=== PATIENT | male | born 1985 | race Two or more races ===

== ENCOUNTER 2017-02-10 21:23 | Emergency (ER) | payer SELFPAY ==
[~2017-02-10] VITALS: Ht 175.3 cm; Wt 86.2 kg
[2017-02-10 21:35] VITALS: BP 106/69
[2017-02-10] MEDS ORDERED: Cetacaine Spray 50ml Btl TOPIC ONE (22:00)
[2017-02-10 22:29] LABS: MEAN CORPUSCULAR HEMOGLOBIN 29.2 PG (27.0-31.0); MEAN CORPUSCULAR HGB CONC 33.1 G/DL (32.0-36.0); MEAN CORPUSCULAR VOLUME 88 FL (80-99); MEAN PLATELET VOLUME 4.6 FL (6.5-10.1); PLATELET COUNT 597 K/UL (150-450); RED BLOOD COUNT 4.99 M/UL (4.70-6.10); RED CELL DISTRIBUTION WIDTH 10.2 % (11.6-14.8); WHITE BLOOD COUNT 18.2 K/UL (4.8-10.8)
[2017-02-10] MEDS ORDERED: Hurricaine 20% Spray ORO ONE (22:30)
--- NOTE | 2017-02-10 22:44 | Emergency Room Report ---
History of Present Illness General Chief Complaint: Sore Throat Source: Patient Present Illness HPI 31-year-old male presents ED complaining of sore throat times one week. States he was seen by PMD and was prescribed antibiotics but states they're not helping. Temp in triage is 100.9. States pain is sharp, 9/10, nonradiating. Denies difficulty breathing or swallowing. Denies cough. Denies ear ache. Denies sick contacts or recent travel. No other aggravating relieving factors. Denies any other associated symptoms Allergies: Coded Allergies: No Known Allergies (Unverified , 02/10/17) Patient History Past Medical History: none Past Surgical History: none Pertinent Family History: none Social History: Denies: smoking, alcohol use, drug use Immunizations: UTD Reviewed Nursing Documentation: PMH: Agreed, PSxH: Agreed Nursing Documentation-PMH Past Medical History: No Stated History Review of Systems All Other Systems: negative except mentioned in HPI Physical Exam Vital Signs Date Time Temp Pulse Resp B/P (MAP) Pulse Ox O2 Delivery O2 Flow Rate FiO2 02/10/17 21:26 100.9 97 20 106/69 98 Sp02 EP Interpretation: reviewed, normal General Appearance: no apparent distress, alert, GCS 15, non-toxic Head: normocephalic Eyes: bilateral eye normal inspection, bilateral eye PERRL ENT: hearing grossly normal, normal voice, TMs + canals normal, pharyngeal erythema, other - COMPENSATION ADMINISTRATOR Neck: full range of motion, no meningismus, supple/symm/no masses Respiratory: chest non-tender, lungs clear, normal breath sounds, speaking full sentences Cardiovascular #1: regular rate, rhythm, no edema Gastrointestinal: normal inspection Rectal: deferred Genitourinary: no CVA tenderness Musculoskeletal: normal inspection Neurologic: alert, oriented x3, responsive, motor strength/tone normal, sensory intact, speech normal Psychiatric: normal inspection Skin: normal inspection Lymphatic: normal inspection Procedures Additional Procedure Procedure Narrative Peritonsillar abscess aspiration Patient placed in supine position with head of bed elevated. In sterile fashion area is anesthetized with viscous lidocaine applied topically with cotton swab. 18-gauge needle was carefully inserted into the peritonsillar abscess with negative pressure and approximately 15 mL of purulent material was expressed. Patient tolerated procedure without complication. Medical Decision Making Diagnostic Impression: Primary Impression: Peritonsillar abscess ER Course Hospital Course 31-year-old male presents to ED complaining of sore throat + fever Differential diagnoses include: URI, pharyngitis, otitis media Clinical course Patient placed on stretcher. After initial history, physical exam reveals a male in no acute distress. Bilateral TM unremarkable. There is pharyngeal erythema and evidence of a large peritonsillar abscess on the left with deviation of the uvula. No stridor. No shortness of breath. Labs drawn-leukocytosis noted, lactic acid okay, electrolytes okay Patient given IV clindamycin in ED Peritonsillar abscess drained in ED without complication. approximately 15 mL of purulent material was drained. Patient states he feels significantly better after drainage. Given Decadron in ED Diagnosis - peritonsillar abscess Stable and discharged home with prescriptions for Tylenol #3, clindamycin. Instructed to followup with ENT. return to ED if symptoms recur or worsen Labs Test 02/10/17 21:50 White Blood Count 18.2 K/UL (4.8-10.8) Red Blood Count 4.99 M/UL (4.70-6.10) Hemoglobin 14.6 G/DL (14.2-18.0) Hematocrit 44.0 % (42.0-52.0) Mean Corpuscular Volume 88 FL (80-99) Mean Corpuscular Hemoglobin 29.2 PG (27.0-31.0) Mean Corpuscular Hemoglobin Concent 33.1 G/DL (32.0-36.0) Red Cell Distribution Width 10.2 % (11.6-14.8) Platelet Count 597 K/UL (150-450) Mean Platelet Volume 4.6 FL (6.5-10.1) Neutrophils (%) (Auto) % (45.0-75.0) Lymphocytes (%) (Auto) % (20.0-45.0) Monocytes (%) (Auto) % (1.0-10.0) Eosinophils (%) (Auto) % (0.0-3.0) Basophils (%) (Auto) % (0.0-2.0) Differential Total Cells Counted 100 Neutrophils % (Manual) 83 % (45-75) Lymphocytes % (Manual) 9 % (20-45) Monocytes % (Manual) 7 % (1-10) Eosinophils % (Manual) 0 % (0-3) Basophils % (Manual) 0 % (0-2) Band Neutrophils 1 % (0-8) Platelet Estimate Increased Platelet Morphology Normal Red Blood Cell Morphology Normal Sodium Level 138 MMOL/L (136-145) Potassium Level 4.0 MMOL/L (3.5-5.1) Chloride Level 103 MMOL/L (98-107) Carbon Dioxide Level 28 MMOL/L (21-32) Anion Gap 7 mmol/L (5-15) Blood Urea Nitrogen 12 mg/dL (7-18) Creatinine 0.9 MG/DL (0.55-1.30) Estimat Glomerular Filtration Rate > 60 mL/min (>60) Glucose Level 120 MG/DL (74-106) Lactic Acid Level 0.80 mmol/L (0.66-2.22) Calcium Level 9.1 MG/DL (8.5-10.1) Total Bilirubin 0.5 MG/DL (0.2-1.0) Aspartate Amino Transf (AST/SGOT) 15 U/L (15-37) Alanine Aminotransferase (ALT/SGPT) 36 U/L (12-78) Alkaline Phosphatase 111 U/L (46-116) Total Protein 7.9 G/DL (6.4-8.2) Albumin 3.4 G/DL (3.4-5.0) Globulin 4.5 g/dL Albumin/Globulin Ratio 0.8 (1.0-2.7) Last Vital Signs Date Time Temp Pulse Resp B/P (MAP) Pulse Ox O2 Delivery O2 Flow Rate FiO2 02/10/17 21:26 100.9 97 20 106/69 98 Status: improved Disposition: HOME, SELF-CARE Condition: Stable Scripts Acetaminophen With Codeine (T#3) (TYLENOL #3 TAB*) Y Tab 1 TAB ORAL Q8H Y for For Pain, #20 TAB Prov: JAMES DARLING M.D. 02/10/17 Clindamycin Hcl (CLINDAMYCIN HCL) 300 Mg Capsule 300 MG ORAL THREE TIMES A DAY, #30 CAP Prov: JAMES DARLING M.D. 02/10/17 Referrals: NOT CHOSEN GUSTAVO/,REFERRING (PCP) JAMES DARLING M.D. Feb 10, 2017 22:44
[2017-02-10] MEDS ORDERED: Lidocaine 2% Visc 15ml soln ORAL ONE ×2 (22:45→23:00)
[2017-02-10 22:52] LABS: BAND NEUTROPHILS % (MANUAL) 1 % (0-8); LYMPHOCYTES % (MANUAL) 9 % (20-45); NEUTROPHILS % (MANUAL) 83 % (45-75); TOTAL CELLS COUNTED 100
[2017-02-10 22:53] LABS: BASOPHILS % (MANUAL) 0 % (0-2); EOSINOPHILS % (MANUAL) 0 % (0-3); PLATELET ESTIMATE INCREASED; PLATELET MORPHOLOGY NORMAL
[2017-02-10 22:57] LABS: ANION GAP 7 mmol/L (5-15); CALCIUM 9.1 MG/DL (8.5-10.1); CARBON DIOXIDE 28 MMOL/L (21-32); CHLORIDE 103 MMOL/L (98-107); CREATININE 0.9 MG/DL (0.55-1.30); GLOMERULAR FILTRATION RATE > 60 mL/min (>60); SODIUM 138 MMOL/L (136-145)
[2017-02-10 23:01] LABS: ALANINE AMINOTRANSFERASE 36 U/L (12-78); ALBUMIN/GLOBULIN RATIO 0.8 (1.0-2.7); ASPARTATE AMINO TRANSFERASE 15 U/L (15-37); TOTAL PROTEIN 7.9 G/DL (6.4-8.2)
[2017-02-10] MEDS ORDERED: CLINDAMYCIN HC300 MG ORAL (23:26)
[2017-02-10] MEDS ORDERED: ACETAMINOPHEN-1 EAC1 ORAL (23:26)
[2017-02-10] MEDS ORDERED: Dexamethasone 4mg/ml vial IM ONE (23:30)
[2017-02-10 23:45] VITALS: BP 106/69
== END 2017-02-10 23:45 | disposition home or self-care (01) ==
LOC: EMR 22:10
DX: J36 Peritonsillar abscess (principal)
CPT/HCPCS: 10060; 36415; 80053; 83605; 85007; 85025; 87040; 96365; 96372; 99284; J1100; S0077

== ENCOUNTER 2020-04-18 10:06 | Emergency (ER) | payer SELFPAY ==
[~2020-04-18] VITALS: Ht 175.3 cm; Wt 95.3 kg
[~2020-04-18 10:06] MED LIST: ACETAMINOPHEN-1 EAC1 ORAL; CLINDAMYCIN HC300 MG ORAL
[2020-04-18 10:47] VITALS: BP 111/82
--- NOTE | 2020-04-18 11:10 | NUR ---
ED Nurse Note: pt stated he got a sore b/w his left testicle and groin 2mths ago and it's gotten worse and bigger. the size of half dollar.
[2020-04-18] MEDS ORDERED: BACTRIM DS TAB1 EAC1 ORAL (11:11)
--- NOTE | 2020-04-18 11:18 | Emergency Room Report ---
History of Present Illness General Chief Complaint: Skin Rash/Abscess Source: Patient Present Illness HPI Disclaimer: Please note that this report is being documented using [employer] technology. This can lead to erroneous entry secondary to incorrect interpretation by the dictating instrument. HPI: 34-year-old male presents for painful mass in his groin. He noticed it over the past couple weeks. Growing. Reports surrounding redness but no skin breakdown. No bleeding. No purulent discharge. Denies fever or chills. Denies changes in urination, urethral discharge, testicular pain, trauma. Denies fever or chills. 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 EOMI. Resp: Normal work of breathing Skin: Intact. There is a 1/2 x 1-1/2 cm fluctuant raised mass over the left pubis. Surrounding erythema and mild edema. Small pustular head noted. No ble eding or purulent drainage. Tender to palpation. Warm to touch. MSK: Normal tone and bulk. Moving all extremities. No obvious deformity. Neuro: Awake and alert. Mentating appropriately Procedures Incision and Drainage Incision and Drainage : Consent: Verbal Site: Left groin Blade Size: 11 I & D Procedure: betadine prep, sterile drapes applied, sterile dressing applied Wound Location: pelvis Wound's Depth, Shape: linear Wound Length (cm): 1 Wound Explored: Purulent material expressed Anesthesia: 1% Lidocaine Volume Anesthetic (ccs): 10 Patient Tolerated: Well Complications: None Medical Decision Making Diagnostic Impression: Primary Impression: Abscess ER Course 34-year-old male presents for evaluation of painful mass in his groin. Consistent with abscess. Incised at bedside by me with expression of purulent material. Tolerated procedure well with no complications. Likely an ingrown hair. He has surrounding cellulitis and will start on Bactrim. Follow-up with clinic as an outpatient peer instructed to return new or worsening symptoms. Last Vital Signs Date Time Temp Pulse Resp B/P (MAP) Pulse Ox O2 Delivery O2 Flow Rate FiO2 04/18/20 10:47 98.1 20 111/82 95 Room Air 04/18/20 10:36 95 Disposition: HOME, SELF-CARE Condition: Stable Scripts Trimethoprim/Sulfamethoxazole 160/800* (BACTRIM DS TABLET*) 1 Each Tablet 1 TAB ORAL Q12H, #14 TAB 0 Refills Prov: Florentin Rivero MD 04/18/20 Referrals: [facility] Patient Instructions: Abscess Additional Instructions: Please follow-up with your primary care doctor in the next 1 to 3 days to discuss this emergency department visit and for reevaluation. If you have any new or worsening symptoms please return to the emergency department for reevaluation. Please note that this report is being documented using [employer] technology. This can lead to erroneous entry secondary to incorrect interpretation by the dictating instrument. Florentin Rivero MD Apr 18, 2020 11:18
--- NOTE | 2020-04-18 11:20 | NUR ---
ER DISCHARGE NOTE: Patient is cleared to be discharged per ERMD, pt is aox4, on room air, with stable vital signs. pt was given dc and prescription instructions, pt was able to verbalize understanding. placed guaze and tape to area and instructed on changing bandages. pt is able to ambulate with steady gait. pt took all belongings.
== END 2020-04-18 11:20 | disposition home or self-care (01) ==
LOC: EMR 11:07
DX: L02.214 Cutaneous abscess of groin (principal)
CPT/HCPCS: 10060; 99282

== ENCOUNTER 2020-04-21 15:10 | Emergency (ER) | payer SELFPAY ==
[~2020-04-21] VITALS: Ht 175.3 cm; Wt 95.3 kg
[~2020-04-21 15:10] MED LIST changes: +BACTRIM DS TAB1 EAC1 ORAL
--- NOTE | 2020-04-21 15:42 | NUR ---
ED Nurse Note: prior visit pt had an abcess drained that was on the left inner side of his groin area. pt stated he's worried that it's not healing right, it feels like theres another hard place up above the first one. pt stated would is still draining clear, pinkish. almost done with antibiotics.
[2020-04-21 15:44] VITALS: BP 110/75
[2020-04-21] MEDS ORDERED: Ketorolac 30mg Inj IM ONE (16:00)
--- NOTE | 2020-04-21 16:23 | Emergency Room Report ---
History of Present Illness General Chief Complaint: Wound Recheck/Suture Removal Source: Patient Present Illness HPI 34-year-old male with no signal past medical history who was seen in [place] 3 days ago for abscess and left side inner thigh close to the inguinal crease and had an incision and drainage performed by ED physician here for wound check. Also reports that since that day he has been feeling pain and hardness on suprapubic and left-sided scrotum. Denies any scrotal swelling or pain has taken antibiotics and is requesting more antibiotics to" kill the infection faster.". Also reports that has been taking ibuprofen and Tylenol [id number] however still a lot of pain. Patient also smokes marijuana for pain. Denies dysuria, penile discharge, any hematuria. Has not taken any other medication for pain. Denies fever or chills. 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 Patient History Past Medical History: see triage record Past Surgical History: none Pertinent Family History: none Reviewed Nursing Documentation: PMH: Agreed; PSxH: Agreed Nursing Documentation-PMH Past Medical History: No Stated History Review of Systems All Other Systems: negative except mentioned in HPI Physical Exam Vital Signs Date Time Temp Pulse Resp B/P (MAP) Pulse Ox O2 Delivery O2 Flow Rate FiO2 04/21/20 15:29 97.9 97 17 110/75 (87) 99 Room Air Sp02 EP Interpretation: reviewed, normal General Appearance: no apparent distress, alert, GCS 15, non-toxic Head: normocephalic, atraumatic Eyes: bilateral eye normal inspection, bilateral eye PERRL ENT: hearing grossly normal, normal pharynx, no angioedema, normal voice Neck: full range of motion, supple/symm/no masses Respiratory: no retraction, no accessory muscle use Cardiovascular #1: no edema, no murmur Gastrointestinal: soft, no bruit Musculoskeletal: back normal Neurologic: alert, motor strength/tone normal, oriented x3, sensory intact, responsive, speech normal Psychiatric: judgement/insight normal, memory normal, mood/affect normal, no suicidal/homicidal ideation Skin: no rash, other - drained abscess healing well left inner thigh at the inguinal crease Lymphatic: no adenopathy Medical Decision Making JOE Attestation All diagnoses and treatment plans were reviewed and discussed with my supervising physician Dr. Rivero Diagnostic Impression: Primary Impression: Lymphadenitis Additional Impression: Encounter for wound care ER Course 34-year-old male with no signal past medical history who was seen in [place] 3 days ago for abscess and left side inner thigh close to the inguinal crease and had an incision and drainage performed by ED physician here for wound check. Also reports that since that day he has been feeling pain and hardness on suprapubic and left-sided scrotum. Denies any scrotal swelling or pain has taken antibiotics and is requesting more antibiotics to" kill the infection faster.". Also reports that has been taking ibuprofen and Tylenol [id number] however still a lot of pain. Patient also smokes marijuana for pain. Denies dysuria, penile discharge, any hematuria. Has not taken any other medication for pain. Denies fever or chills. Ddx considered but are not limited to : Cellulitis, scrotal abscess, superficial infection, abscess Vital signs: are WNL, pt. is afebrile H&PE are most consistent with:, Lymphadenitis ORDERS: Scrotal ultrasound, Keflex, ibuprofen 800 ED INTERVENTIONS: Toradol IM, patient deferred wound clean and dressed DISCHARGE: At this time pt. is stable for d/c to home. Will provide printed patient care instructions, and any necessary prescriptions. Care plan and follow up instructions have been discussed with the patient prior to discharge. Advised patient take medication as directed, follow primary care provider, wear loose clothing, if worsening symptoms return to the emergency room. Also continue to do wound care at home CT/MRI/US Diagnostic Results CT/MRI/US Diagnostic Results : Imaging Test Ordered: Scrotal ultrasound Impression Lymphadenitis, no abscess Last Vital Signs Date Time Temp Pulse Resp B/P (MAP) Pulse Ox O2 Delivery O2 Flow Rate FiO2 04/21/20 15:44 97.9 17 110/75 99 Room Air 04/21/20 15:29 97 Disposition: HOME, SELF-CARE Condition: Stable Patient Instructions: Lymphadenopathy, Wound Check Additional Instructions: Advised patient take medication as directed, follow primary care provider, wear loose clothing, if worsening symptoms return to the emergency room. Also continue to do wound care at home Zak James Apr 21, 2020 16:23
--- NOTE | 2020-04-21 17:02 | Diagnostic Imaging Report ---
Indications: Left-sided scrotal pain, palpable mass Technique: Grayscale and duplex images of the scrotum Comparison: none Findings:The right testicle measures 4.6cm in length. It demonstrates normal echogenicity. Normal Doppler flow. Normal epididymis. The left testicle measures 4.4 cm in length. It demonstrates normal echogenicity and normal Doppler flow. Normal epididymis. In the left groin region, corresponding the area of pain, there is a 1.9 x 1 cm lymph node as well as a few other smaller lymph nodes. Impression: Unremarkable testicles, no acute abnormality Prominent nodes in the left inguinal region. Per technologist this corresponds with area of pain. May reflect some reactive lymphadenitis, as patient reportedly had an abscess drain in this area recently
[2020-04-21] MEDS ORDERED: CEPHALEXIN500 MG ORAL (17:24)
[2020-04-21] MEDS ORDERED: IBU800 MG PO (17:24)
--- NOTE | 2020-04-21 17:36 | NUR ---
ER DISCHARGE NOTE: Patient is cleared to be discharged per ERMD, pt is aox4, on room air, with stable vital signs. pt was given dc and prescription instructions, pt was able to verbalize understanding. pt is able to ambulate with steady gait. pt took all belongings.
== END 2020-04-21 17:30 | disposition home or self-care (01) ==
LOC: EMR 16:33
DX: I88.9 Nonspecific lymphadenitis, unspecified (principal); Z09 Encounter for follow-up examination after completed treatment for conditions other than malignant neoplasm; F12.90 Cannabis use, unspecified, uncomplicated
CPT/HCPCS: 76870; 96372; 99284; J1885